=== PATIENT | female | born 1965 | race Asian ===

== ENCOUNTER 2024-12-05 08:18 | Emergency (ER) | payer BC ==
[~2024-12-05] VITALS: Ht 132.1 cm; Wt 53.1 kg
[2024-12-05 08:32] VITALS: BP 132/90
[2024-12-05] MEDS ORDERED: HYDROCODONE/APAP 10-325 MG TABLET ONE (09:06)
[2024-12-05] MEDS: HYDROCODONE/APAP 10-325 MG TABLET PO ONE (09:11)
[2024-12-05] MEDS ORDERED: HYDROMORPHONE 1 MG/1 ML DISP.SYRIN ONE (09:17)
[2024-12-05] MEDS ORDERED: diphenhydrAMINE 50 MG/1 ML VIAL ONE (09:17)
[2024-12-05] MEDS: diphenhydrAMINE 50 MG/1 ML VIAL IM ONE (09:20)
[2024-12-05] MEDS: HYDROMORPHONE 1 MG/1 ML DISP.SYRIN IM ONE (09:20)
[2024-12-05] MEDS ORDERED: HYDR-3980 PO (10:06)
[2024-12-05 10:26] VITALS: BP 121/77; O2SAT 97
== END 2024-12-05 10:27 | disposition home or self-care (01) ==
LOC: ER 08:18
DX: M54.50 Low back pain, unspecified (principal)
CPT/HCPCS: 99284; 72110; 96372 ×2; J1200; J1171; A4606; A4663